=== PATIENT | male | born 1940 | race Caucasian/White ===

== ENCOUNTER → 2018-07-04 | Outpatient (CLI) | payer MEDICARE, OTHER ==
[2018-07-04 17:54] LABS: Microalb/Creat Ratio UR, Rand Unable to Calculate mg/g (0.000-30.000); Microalbumin, Random Urine <5.000 mg/L (0.000-20.000)
== END ==
LOC: LAB SHORT 11:09 → LAB 11:09
PROVIDERS: Registered Nurse
DX: E11.9 Type 2 diabetes mellitus without complications (principal); I10 Essential (primary) hypertension; E78.5 Hyperlipidemia, unspecified
CPT/HCPCS: 82043; 82570

== ENCOUNTER 2019-03-03 14:55 | Observation (INO) | payer MEDICARE, OTHER ==
[~2019-03-03] VITALS: Ht 167.6 cm; Wt 88.5 kg
[2019-03-03] MEDS ORDERED: LISI20 PO (15:17)
[2019-03-03 15:19] LABS: BASOPHILS ABSOLUTE AUTO 0.03 K/mm3 (0.00-0.23); BASOPHILS PERCENT AUTO 1 % (0-2); EOSINOPHILS ABSOLUTE AUTO 0.07 K/mm3 (0.00-0.68); EOSINOPHILS PERCENT AUTO 1 % (0-6); Hemoglobin 15.3 g/dL (13.5-17.5); IMMATURE GRAN ABSOLUTE AUTO 0.01 K/mm3 (0.00-0.10); IMMATURE GRAN PERCENT AUTO 0 % (0-1); LYMPHOCYTES ABSOLUTE AUTO 2.14 K/mm3 (0.84-5.20); LYMPHOCYTES PERCENT AUTO 43 % (21-46); MONOCYTES ABSOLUTE AUTO 0.36 K/mm3 (0.16-1.47); MONOCYTES PERCENT AUTO 7 % (4-13); Mean Corpuscular HGB 31.7 pg (26.0-34.0); Mean Corpuscular Volume 93 fL (80-100); Mean Platelet Volume 9.7 fL (9.1-12.4); NEUTROPHILS PERCENT AUTO 48 % (41-73); Platelet Count 152 K/mm3 (150-400); RDW Coefficient Variation 13.2 % (11.7-14.2); RDW Standard Deviation 45.1 fL (35.1-46.3); Red Blood Cell Count 4.83 M/mm3 (4.30-5.90); White Blood Cell Count 5.01 K/mm3 (4.00-11.30)
[2019-03-03] MEDS ORDERED: FINA5 PO (15:27)
[2019-03-03] MEDS ORDERED: SIMV40 PO (15:27)
[2019-03-03] MEDS ORDERED: TRELEGY ELLIPT1 EACH INH (15:27)
[2019-03-03] MEDS ORDERED: COMBIVENT RESPIM4 GM INH (15:28)
[2019-03-03] MEDS ORDERED: ALBU2.5V5 INH (15:28)
[2019-03-03] MEDS ORDERED: GLIM2 PO (15:29)
[2019-03-03] MEDS ORDERED: Aciphex20 MG PO (15:42)
[2019-03-03] MEDS ORDERED: VITAMIN E400 UNI1 PO (15:44)
[2019-03-03] MEDS ORDERED: ASCO500 PO (15:45)
[2019-03-03] MEDS ORDERED: Complete Multi1 EAC1 PO (15:45)
[2019-03-03] MEDS ORDERED: Cinnamon500 MG PO (15:46)
[2019-03-03] MEDS ORDERED: CHOL10002 PO (15:47)
[2019-03-03 15:48] LABS: Alanine Aminotransfer (ALT/SGP 33 U/L (12-78); Albumin, Blood 3.8 g/dL (3.4-5.0); Albumin/Globulin Ratio 1.2 (0.8-1.8); Alk Phos 91 U/L (50-136); Anion Gap 6 mmol/L (6-16); Aspartate Aminotrans (AST/SGOT 21 U/L (12-37); Bilirubin, Total 0.5 mg/dL (0.1-1.0); Blood Urea Nitrogen 17 mg/dL (8-24); Bun/Creatinine Ratio 12.8 (12.0-20.0); CO2, Blood 27 mmol/L (21-32); Calcium, Blood 8.9 mg/dL (8.5-10.1); Chloride, Blood 109 mmol/L (98-108); Creatinine, Blood 1.33 mg/dL (0.60-1.20); Globulin, Blood 3.3 g/dL (2.2-4.0); Glomerular Filtration Rate 55 (60-); Glucose, Blood 193 mg/dL (70-99); Potassium, Blood 4.1 mmol/L (3.5-5.5); Sodium, Blood 142 mmol/L (136-145); Total Protein, Blood 7.1 g/dL (6.4-8.2); Troponin I <0.015 ng/mL (0.000-0.040)
[2019-03-03] MEDS ORDERED: Super B-50 Com1 EACH PO (15:49)
[2019-03-03] MEDS ORDERED: IRON256 MG PO (15:52)
[2019-03-03] MEDS ORDERED: BUPR150ER PO (19:18)
--- NOTE | 2019-03-03 20:46 | NUR ---
PATIENT WAS A NEW ADMIT RIGHT BEFORE SHIFT CHANGE. AXO X3 AND ONE PERSON ASSIST TO BR. ORIENTED TO ROOM AND CALL LIGHT SYSTEM. DENIES CHEST PAIN, SOB, AND N/V. CALL LIGHT IN REACH.
--- NOTE | 2019-03-03 20:47 | NUR ---
RT IN TO SET UP CPAP WITH 2L O2 BLEED IN. PATIENT TOLERATING WELL. CALL LIGHT IN REACH.
--- NOTE | 2019-03-04 02:20 | NUR ---
PATIENT STATING 97% ON CPAP WITH 2L BLEED IN SLEEPING. DESTATED DOWN INTO THE HIGH 80'S X 2 AND BACK TO 97%. CALL LIGHT IN REACH.
--- NOTE | 2019-03-04 03:22 | NUR ---
SHIFT SUMMARY PATIENT HAD NO ACUTE CHANGES OBSERVED THIS SHIFT. DENIES CHEST PAIN, SOB, AND N/V. AXO X3 BEDFAST WITH BR PRIVILEDGES WITH SBA TO BSC. PIV REMAINS INTACT. CHILD CENTER ASSISTANT REPORTS NSR 85 W/1ST DEGREE. ON CPAP WITH 2L O2 BLEED IN AT NIGHT, RA DURING THE DAY. VSS/AFEBRILE. TAKES MEDICATION WHOLE WITH WATER. THREE TROPONINS LABS NEGATIVE. CONTINUOUS PULSE OXIMETRY STATING AVERAGE 97% ON 2L O2 NIGHT/CPAP. DESTATED SLEEPING X TWO TO HIGH 80'S AND BACK INTO THE HIGH 90'S. CALL LIGHT IN REACH. BED IN LOWEST POSITION. WILL CONTINUE TO MONITOR UNTIL DAY SHIFT NURSE ASSUMES CARE.
--- NOTE | 2019-03-04 16:22 | NUR ---
SHIFT SUMMARY PATIENT A&O X4, SBA TO BATHROOM. DENIES ANY PAIN OR NAUSEA. C/O SOB AT W/ EXERTION. CONT PULSE OX ON, SATS >90% THROUGHOUT THE SHIFT. BREATHING TREATMENTS PER RT. PATIENT HAD STRESS TEST DONE THIS AFTERNOON. BACK TO ROOM. DENIES CHEST PAIN. NO ACUTE CHANGES THIS SHIFT. BED IN LOWEST POSITION, CALL LIGHT WITHIN REACH.
--- NOTE | 2019-03-05 05:17 | NUR ---
SHIFT SUMMARY NO ACUTE CHANGES TO PRESENT THIS SHIFT. PT SITTING UP WATCHING TV DURING SHIFT REPORT. PLEASANT AND CO-OP. DENIED NEEDS. HX OF LUNG CA, CAD, HTN, AND COPD. PT ASSISTED WITH BIPAP AT HS BY RT. PT HAS REMAINED ON BIPAP THRU OUT THE NIGHT, RESTING QUIETLY. PT TO HAVE STRESS TEST TODAY AND POSSIBLE D/C IF NORMAL, PER SHIFT REPORT. PER TELE MX, PT SR WITH FIRST DEGREE AV BLOCK. SBA TO BTHRM. CONTINOUS BIOX WNL'S THRU OUT THE SHIFT. CALL LT IN REACH.
--- NOTE | 2019-03-05 17:33 | NUR ---
SHIFT SUMMARY PT HAS HAD NO ACUTE CHANGES THIS SHIFT, NO COMPLAINTS OF ANY KIND. PT IS BEDRSTING AT THIS TIME, WILL BE DC'ING THIS SHIFT, WILL CONT TO MONITOR.
[2019-03-05] MEDS ORDERED: CARV3.125 PO (18:01)
== END 2019-03-05 18:33 | disposition home or self-care (01) ==
LOC: ER 14:55 → MEDS 14:56
PROVIDERS: Emergency Medicine; ADMIT Hospitalist
DX: R07.9 Chest pain, unspecified (principal); I10 Essential (primary) hypertension; J44.9 Chronic obstructive pulmonary disease, unspecified; E11.9 Type 2 diabetes mellitus without complications; E78.5 Hyperlipidemia, unspecified; C34.2 Malignant neoplasm of middle lobe, bronchus or lung; E11.22 Type 2 diabetes mellitus with diabetic chronic kidney disease; I12.9 Hypertensive chronic kidney disease with stage 1 through stage 4 chronic kidney disease, or unspecified chronic kidney disease; N18.3 Chronic kidney disease, stage 3 (moderate); C34.90 Malignant neoplasm of unspecified part of unspecified bronchus or lung; Z87.891 Personal history of nicotine dependence; Z88.1 Allergy status to other antibiotic agents; Z88.5 Allergy status to narcotic agent; Z79.899 Other long term (current) drug therapy
CPT/HCPCS: 36415; 71045; 78452; 80053; 84484; 85025; 93005; 93010; 93017; 94640; 94660; 94762; 99285-25; A9500; J0706; J2785

== ENCOUNTER 2020-02-03 13:39 | Emergency (ER) | payer OTHER, MEDICARE ==
[~2020-02-03] VITALS: Ht 167.6 cm; Wt 88.0 kg
[~2020-02-03 13:39] MED LIST: ALBU2.5V5 INH; ASCO500 PO; Aciphex20 MG PO; BUPR150ER PO; CARV3.125 PO; COMBIVENT RESPIM4 GM INH; Cinnamon500 MG PO; Complete Multi1 EAC1 PO; FINA5 PO; GLIM2 PO; IRON256 MG PO; LISI20 PO; SIMV40 PO; Super B-50 Com1 EACH PO; TRELEGY ELLIPT1 EACH INH; VITAMIN D33000 UNI1 PO; VITAMIN E400 UNI1 PO
[2020-02-03] MEDS ORDERED: ZESTRIL40 M2 PO (14:06)
[2020-02-03] MEDS ORDERED: ATOR40TA PO (14:08)
[2020-02-03] MEDS ORDERED: METPRE4DP PO (14:56)
== END 2020-02-03 15:23 | disposition home or self-care (01) ==
LOC: ER 13:39
DX: M54.16 Radiculopathy, lumbar region (principal); Z88.5 Allergy status to narcotic agent; Z88.8 Allergy status to other drugs, medicaments and biological substances; Z79.899 Other long term (current) drug therapy; Z87.891 Personal history of nicotine dependence
CPT/HCPCS: 72100; 73502; 96372; 99283-25; J1885

== ENCOUNTER → 2020-02-17 | Outpatient (CLI) | payer MEDICARE, OTHER ==
[~2020-02-17] MED LIST changes: +ATOR40TA PO; +METPRE4DP PO; +ZESTRIL40 M2 PO
[2020-02-17 15:17] LABS: Percent Saturation 10.4 % (20.0-50.0)
== END | disposition home or self-care (01) ==
LOC: LAB SHORT 12:41 → LAB 12:41
PROVIDERS: Internal Medicine Hematology & Oncology
DX: C34.2 Malignant neoplasm of middle lobe, bronchus or lung (principal); K90.0 Celiac disease; D51.1 Vitamin B12 deficiency anemia due to selective vitamin B12 malabsorption with proteinuria; D64.9 Anemia, unspecified
CPT/HCPCS: 82607; 82728; 82746; 83540; 83550

== ENCOUNTER 2021-08-19 19:03 | Emergency (ER) | payer MEDICARE, OTHER ==
[~2021-08-19] VITALS: Ht 167.6 cm; Wt 70.3 kg
[2021-08-19 19:50] LABS: BASOPHILS ABSOLUTE AUTO 0.08 K/mm3 (0.00-0.23); BASOPHILS PERCENT AUTO 1 % (0-2); EOSINOPHILS ABSOLUTE AUTO 0.05 K/mm3 (0.00-0.68); EOSINOPHILS PERCENT AUTO 1 % (0-6); Hematocrit 44.2 % (37.0-53.0); Hemoglobin 15.1 g/dL (13.5-17.5); IMMATURE GRAN ABSOLUTE AUTO 0.05 K/mm3 (0.00-0.10); IMMATURE GRAN PERCENT AUTO 1 % (0-1); LYMPHOCYTES ABSOLUTE AUTO 1.58 K/mm3 (0.84-5.20); LYMPHOCYTES PERCENT AUTO 19 % (21-46); MONOCYTES ABSOLUTE AUTO 0.49 K/mm3 (0.16-1.47); MONOCYTES PERCENT AUTO 6 % (4-13); Mean Corpuscular HGB 30.9 pg (26.0-34.0); Mean Corpuscular HGB Conc 34.2 g/dL (31.5-36.5); Mean Corpuscular Volume 91 fL (80-100); Mean Platelet Volume 9.3 fL (9.1-12.4); NEUTROPHILS ABSOLUTE AUTO 5.89 K/mm3 (1.96-9.15); NEUTROPHILS PERCENT AUTO 72 % (41-73); Platelet Count 144 K/mm3 (150-400); RDW Coefficient Variation 13.4 % (11.7-14.2); RDW Standard Deviation 44.6 fL (35.1-46.3); Red Blood Cell Count 4.88 M/mm3 (4.30-5.90); White Blood Cell Count 8.14 K/mm3 (4.00-11.30)
[2021-08-19 20:03] LABS: Alanine Aminotransfer (ALT/SGP 31 U/L (12-78); Albumin, Blood 3.2 g/dL (3.4-5.0); Albumin/Globulin Ratio 0.8 (0.8-1.8); Alk Phos 100 U/L (50-136); Anion Gap 4 mmol/L (6-16); Aspartate Aminotrans (AST/SGOT 46 U/L (12-37); Bilirubin, Total 0.8 mg/dL (0.1-1.0); Blood Urea Nitrogen 16 mg/dL (8-24); Bun/Creatinine Ratio 13.1 (12.0-20.0); CO2, Blood 21 mmol/L (21-32); Calcium, Blood 9.2 mg/dL (8.5-10.1); Chloride, Blood 109 mmol/L (98-108); Creatinine, Blood 1.22 mg/dL (0.60-1.20); Glomerular Filtration Rate 57 (60-); Glucose, Blood 119 mg/dL (70-99); Potassium, Blood 4.3 mmol/L (3.5-5.5); Sodium, Blood 134 mmol/L (136-145); Total Protein, Blood 7.2 g/dL (6.4-8.2); Troponin I <0.015 ng/mL (0.000-0.040)
[2021-08-20] MEDS ORDERED: Norco 5-325 Ta1 EACH PO (02:59)
== END 2021-08-20 04:11 | disposition home or self-care (01) ==
LOC: ER 19:03
PROVIDERS: Physician Assistant
DX: S22.20XA Unspecified fracture of sternum, initial encounter for closed fracture (principal); I10 Essential (primary) hypertension; E11.9 Type 2 diabetes mellitus without complications; E78.5 Hyperlipidemia, unspecified; J44.9 Chronic obstructive pulmonary disease, unspecified; Z88.8 Allergy status to other drugs, medicaments and biological substances; Z88.5 Allergy status to narcotic agent; Z79.899 Other long term (current) drug therapy; Z79.84 Long term (current) use of oral hypoglycemic drugs; Z87.891 Personal history of nicotine dependence; W18.30XA Fall on same level, unspecified, initial encounter
CPT/HCPCS: 36415; 71046; 71260; 74177; 80053; 84484; 85025; 93005; 93010; 99285-25; Q9967

== ENCOUNTER 2022-01-08 10:47 | Inpatient (IN) | payer OTHER, MEDICARE ==
[~2022-01-08] VITALS: Ht 167.6 cm; Wt 76.2 kg
[~2022-01-08 10:47] MED LIST changes: +COMBIVENT RESPIM4 G1 INH; -COMBIVENT RESPIM4 GM INH; -Complete Multi1 EAC1 PO; +MULTI-VITAMIN1 EAC2 PO; +Norco 5-325 Ta1 EACH PO
[2022-01-08 11:04] LABS: Base Excess Venous -1.7 mmol/L; PCO2 Venous 40.4 mmHg (38-42); PO2 Venous 67.5 mmHg (38-42); pH Blood Venous 7.37 (7.34-7.37)
[2022-01-08 11:09] LABS: Hematocrit 40.5 % (37.0-53.0); Hemoglobin 13.3 g/dL (13.5-17.5); Mean Corpuscular HGB 28.9 pg (26.0-34.0); Mean Corpuscular HGB Conc 32.8 g/dL (31.5-36.5); Mean Corpuscular Volume 88 fL (80-100); Mean Platelet Volume 9.8 fL (9.1-12.4); Platelet Count 128 K/mm3 (150-400); RDW Coefficient Variation 15.5 % (11.7-14.2); RDW Standard Deviation 49.9 fL (35.1-46.3); White Blood Cell Count 5.81 K/mm3 (4.00-11.30)
[2022-01-08 11:19] LABS: Albumin, Blood 2.7 g/dL (3.4-5.0); Albumin/Globulin Ratio 0.6 (0.8-1.8); Bilirubin, Total 1.2 mg/dL (0.1-1.0); Bun/Creatinine Ratio 28.7 (12.0-20.0); Calcium, Blood 9.5 mg/dL (8.5-10.1); Creatinine, Blood 1.74 mg/dL (0.60-1.20); Globulin, Blood 4.7 g/dL (2.2-4.0); Magnesium, Blood 2.6 mg/dL (1.6-2.4); Potassium, Blood 4.4 mmol/L (3.5-5.5); Total Protein, Blood 7.4 g/dL (6.4-8.2)
[2022-01-08 11:34] LABS: BAND PERCENT MAN 11 % (0-8); BASOPHILS PERCENT MAN 0 % (0-2); EOSINOPHILS PERCENT MAN 0 % (0-6); LYMPHOCYTES ABSOLUTE MAN 0.63 K/mm3 (0.84-5.20); LYMPHOCYTES PERCENT MAN 11 % (21-46); MONOCYTES ABSOLUTE MAN 0.63 K/mm3 (0.16-1.47); MONOCYTES PERCENT MAN 11 % (4-13); NEUTROPHILS ABSOLUTE MAN 4.53 K/mm3 (1.96-9.15); SEG NEUTROPHILS PERCENT MAN 67 % (41-73); TOTAL CELLS COUNTED 100
[2022-01-08 11:48] LABS: Influenza A, PCR NEGATIVE (NEGATIVE); Influenza B, PCR NEGATIVE (NEGATIVE); Resp Syncytial Virus, PCR NEGATIVE (NEGATIVE); SARS-Cov-2 (COVID-19) PCR, MMC NEGATIVE (NEGATIVE)
[2022-01-08] MEDS ORDERED: DICLOFENAC SOD100 GM TOP (18:03)
[2022-01-08] MEDS ORDERED: FISH OIL 1,2001 EAC1 PO (18:05)
[2022-01-08] MEDS ORDERED: LISI20 PO (18:06)
[2022-01-08] MEDS ORDERED: OMEP20ER PO (18:07)
--- NOTE | 2022-01-08 18:50 | NUR ---
SHIFT SUMMARY PT ADMITTED FOR COPD EXACERBATION. HE IS A/O X3 BUT FORGETFUL. CURRENTLY ON 3 LITERS O2 AND SATTING ABOVE 90%. LUNGS COARSE T/O. MEDICATION LIST OBTAINED FROM V.A. AND RECONCILED. VSS. WILL REPORT TO NOC.
--- NOTE | 2022-01-09 01:24 | NUR ---
BURGLAR ALARM SUPERINTENDENT SUMMARY PATIENT HAD A FAIR SHIFT.HE IS ALERT AND ORIENTED, VERY PAM OF HEARING. HE IS ON 3L NC. HE STATES HE IS ALWAYS SOB. HIS V/S ARE STABLE AND THERE. NO COMPLAINT LODGED. WILL CONTINUE TO MONITOR HIM.
[2022-01-09 04:17] LABS: Hematocrit 37.1 % (37.0-53.0); Hemoglobin 12.3 g/dL (13.5-17.5); Mean Corpuscular HGB 28.9 pg (26.0-34.0); Mean Corpuscular HGB Conc 33.2 g/dL (31.5-36.5); Mean Corpuscular Volume 87 fL (80-100); Mean Platelet Volume 10.1 fL (9.1-12.4); Platelet Count 128 K/mm3 (150-400); RDW Coefficient Variation 14.9 % (11.7-14.2); RDW Standard Deviation 48.3 fL (35.1-46.3); Red Blood Cell Count 4.26 M/mm3 (4.30-5.90); White Blood Cell Count 4.52 K/mm3 (4.00-11.30)
[2022-01-09 04:32] LABS: Calcium, Blood 9.8 mg/dL (8.5-10.1); Creatinine, Blood 1.35 mg/dL (0.60-1.20); Potassium, Blood 3.8 mmol/L (3.5-5.5)
[2022-01-09 05:14] LABS: BAND PERCENT MAN 23 % (0-8); BASOPHILS PERCENT MAN 0 % (0-2); EOSINOPHILS PERCENT MAN 0 % (0-6); LYMPHOCYTES ABSOLUTE MAN 0.04 K/mm3 (0.84-5.20); LYMPHOCYTES PERCENT MAN 1 % (21-46); MONOCYTES ABSOLUTE MAN 0.22 K/mm3 (0.16-1.47); MONOCYTES PERCENT MAN 5 % (4-13); NEUTROPHILS ABSOLUTE MAN 4.24 K/mm3 (1.96-9.15); SEG NEUTROPHILS PERCENT MAN 71 % (41-73); TOTAL CELLS COUNTED 100
--- NOTE | 2022-01-09 17:18 | NUR ---
PATIENT IS ALERT AND ORIENTED AND COOPERATIVE WITH CARE. ON 2.5L O2 VIA NC. CONTINUOUS PULSE OX IN PLACE. PATIENT HAD A CHEST CT COMPLETED TODAY. USES THE URINAL. 1PA TO TRANSFER TO WHEELCHAIR. WILL CONTINUE TO MONITOR
--- NOTE | 2022-01-10 03:15 | NUR ---
SHIFT SUMMARY: A&OX4, COMPLIANT WITH MEDICATIONS AND PLAN OF CARE, REQUIRED 5L TO MAINTIAN SATS > 92%, USES CPAP HS BUT DOES NOT HAVE ONE HERE. COARSE LUNG SOUNDS WITH EXP WHEEZE. INTERMITTENT COUGH. NO SIGINIFICANT EVENTS ON NOC.
[2022-01-10 05:08] LABS: PO2 Arterial 77.6 mmHg (80-100); pH Blood Arterial 7.41 (7.35-7.45)
[2022-01-10 06:19] LABS: Hematocrit 35.7 % (37.0-53.0); Hemoglobin 11.7 g/dL (13.5-17.5); Mean Corpuscular HGB 28.7 pg (26.0-34.0); Mean Corpuscular HGB Conc 32.8 g/dL (31.5-36.5); Mean Corpuscular Volume 88 fL (80-100); Mean Platelet Volume 10.1 fL (9.1-12.4); Platelet Count 133 K/mm3 (150-400); RDW Standard Deviation 48.5 fL (35.1-46.3); Red Blood Cell Count 4.07 M/mm3 (4.30-5.90); White Blood Cell Count 4.31 K/mm3 (4.00-11.30)
[2022-01-10 06:36] LABS: Albumin, Blood 2.3 g/dL (3.4-5.0); Anion Gap 7 mmol/L (6-16); Blood Urea Nitrogen 49 mg/dL (8-24); Bun/Creatinine Ratio 39.2 (12.0-20.0); CO2, Blood 26 mmol/L (21-32); Chloride, Blood 110 mmol/L (98-108); Creatinine, Blood 1.25 mg/dL (0.60-1.20); Glomerular Filtration Rate 55 (60-); Glucose, Blood 187 mg/dL (70-99); Phosphorus, Blood 3.3 mg/dL (2.5-4.9); Potassium, Blood 3.9 mmol/L (3.5-5.5); Sodium, Blood 143 mmol/L (136-145)
--- NOTE | 2022-01-10 11:06 | NUR ---
HOME BIPAP SETTINGS SALOME AT [facility] WAS ABLE TO CONFIRM PTS HOME BIPAP SETTINGS. MOST RECENT ORDER PER [facility] WAS 01/07/22 AND WAS 13/9 WITH A 2L BLEED.
--- NOTE | 2022-01-10 18:27 | NUR ---
SHIFT SUMMARY PATIENT RESTING IN BED. NO SIGNIFICANT EVENTS T/O SHIFT. PATIENT ON 4L NC (1L BASELINE), PRODUCTIVE COUGH PRESENT. PATIENT USES BIPAP AT NIGHT. PATIENT UP TO CHAIR FOR LUNCH AND TOOK SHOWER TODAY. VSS. BED IN LOW POSITION WITH CALL LIGHT IN REACH. WILL CONTINUE TO MONITOR.
[2022-01-11 05:09] LABS: Hematocrit 34.1 % (37.0-53.0); Hemoglobin 11.1 g/dL (13.5-17.5); Mean Corpuscular HGB 28.7 pg (26.0-34.0); Mean Corpuscular HGB Conc 32.6 g/dL (31.5-36.5); Mean Corpuscular Volume 88 fL (80-100); Platelet Count 139 K/mm3 (150-400); RDW Standard Deviation 48.5 fL (35.1-46.3); Red Blood Cell Count 3.87 M/mm3 (4.30-5.90)
[2022-01-11 05:55] LABS: Albumin, Blood 2.2 g/dL (3.4-5.0); Anion Gap 5 mmol/L (6-16); Blood Urea Nitrogen 49 mg/dL (8-24); Bun/Creatinine Ratio 38.9 (12.0-20.0); CO2, Blood 28 mmol/L (21-32); Calcium, Blood 9.6 mg/dL (8.5-10.1); Chloride, Blood 109 mmol/L (98-108); Creatinine, Blood 1.26 mg/dL (0.60-1.20); Glomerular Filtration Rate 55 (60-); Glucose, Blood 181 mg/dL (70-99); Phosphorus, Blood 3.7 mg/dL (2.5-4.9); Sodium, Blood 142 mmol/L (136-145)
--- NOTE | 2022-01-11 15:20 | NUR ---
NO SIGNIFICANT CHANGES TO REPORT. PATIENT ALERT AND AWAKE, CONTINUES ON OXYGEN 4 L/MIN VIA NC, BASALINE AT HOME 1L/MIN, BIPAP AT NIGHT. PRODUCTIVE COUGH PRESENT. INSULIN ADMINISTRATED PER S/S. DEMIES PAIN THROUGHOUT THE SHIFT. WILL CONTINUE TO MONITOR.
--- NOTE | 2022-01-11 16:50 | NUR ---
Received referral from nurse toddler caregiver (Dane Urrutia) on 01/10/2022. Patient is to discharge 01/12/2022 with orders for home health and elected [facility]. Met with patient to further discuss the above. Patient is agreeable to the above. Discussed homebound status definition with patient. Patient verbalized understanding. Discussed what home health is vs what it is not (in home caregivers/housekeeping). Patient verbalized understanding. Discussed the next steps in the process of an initial assessment to determine frequency of visits. Again patient verbalized understanding. Offered a chance for patient to ask questions regarding the above of which there were none. At this time patient has no discharge orders entered. Will continue to monitor and follow for discharge. Melody Apple Referral Liaison
--- NOTE | 2022-01-12 05:08 | NUR ---
Patient slept throughout the night. He is still on 4 LO2 via N/A. Denies pain or disconfort at this time. No changes in patient status. We will continue to monitor.
[2022-01-12] MEDS ORDERED: ACET325 PO (10:28)
[2022-01-12] MEDS ORDERED: GUAI600T33 PO (10:28)
[2022-01-12] MEDS ORDERED: VISBIOME 112.51 EACH PO (10:29)
[2022-01-12] MEDS ORDERED: ALBU90OI INH (10:29)
[2022-01-12] MEDS ORDERED: AMOCLA875 PO (10:30)
[2022-01-12] MEDS ORDERED: PRED20 PO (10:31)
--- NOTE | 2022-01-12 15:55 | NUR ---
Patient now has discharge orders entered. Gathered all supporting documentation for referral (face sheet, face to face, med list, and H&P) and sent to [facility] for review. No further interventions required. Melody Apple Referral Liaison
== END 2022-01-12 13:04 | disposition home health service (06) | DRG 871 ==
LOC: ER 10:47 → MEDS 14:32
PROVIDERS: Family Medicine; Student in an Organized Health Care Education/Training Program; ADMIT Internal Medicine
DX: A41.3 Sepsis due to Hemophilus influenzae (principal); J96.21 Acute and chronic respiratory failure with hypoxia; J12.89 Other viral pneumonia; N17.9 Acute kidney failure, unspecified; C81.90 Hodgkin lymphoma, unspecified, unspecified site; Z20.822 Contact with and (suspected) exposure to COVID-19; E78.5 Hyperlipidemia, unspecified; J43.9 Emphysema, unspecified; E11.65 Type 2 diabetes mellitus with hyperglycemia; T38.0X5A Adverse effect of glucocorticoids and synthetic analogues, initial encounter; I12.9 Hypertensive chronic kidney disease with stage 1 through stage 4 chronic kidney disease, or unspecified chronic kidney disease; R65.20 Severe sepsis without septic shock; N18.31 Chronic kidney disease, stage 3a; E11.22 Type 2 diabetes mellitus with diabetic chronic kidney disease; K21.9 Gastro-esophageal reflux disease without esophagitis; N40.0 Benign prostatic hyperplasia without lower urinary tract symptoms; Z90.49 Acquired absence of other specified parts of digestive tract; Z98.890 Other specified postprocedural states; Z87.891 Personal history of nicotine dependence; Z88.1 Allergy status to other antibiotic agents; Z88.6 Allergy status to analgesic agent; Z79.899 Other long term (current) drug therapy
CPT/HCPCS: 0241U; 36415; 36600; 71045; 71250; 80048; 80053; 80069; 82803; 82947; 83605; 83735; 83880; 84145; 84484; 85025; 85027; 87040; 87070; 87077; 87185; 87205; 90686; 93005; 93010; 94640; 94644; 94660; 94667; 94668; 94760; 94761; 94762; 96374; 96375; 99285-25; A9270; J0696; J1644; J1940; J2930; J7030; J7512

== ENCOUNTER 2022-08-30 14:03 | Emergency (ER) | payer OTHER ==
[~2022-08-30] VITALS: Ht 167.6 cm; Wt 70.3 kg
[~2022-08-30 14:03] MED LIST changes: +ACET325 PO; +ALBU90OI INH; +AMOCLA875 PO; +DICLOFENAC SOD100 GM TOP; +FISH OIL 1,2001 EAC1 PO; +GUAI600T33 PO; +OMEP20ER PO; +PRED20 PO; +VISBIOME 112.51 EACH PO
== END 2022-08-30 16:55 | disposition home or self-care (01) ==
LOC: ER 14:03
DX: M25.551 Pain in right hip (principal); M79.645 Pain in left finger(s); W18.30XA Fall on same level, unspecified, initial encounter; J44.9 Chronic obstructive pulmonary disease, unspecified; I10 Essential (primary) hypertension; E11.9 Type 2 diabetes mellitus without complications; F17.200 Nicotine dependence, unspecified, uncomplicated; Z88.5 Allergy status to narcotic agent; Z88.1 Allergy status to other antibiotic agents; Z79.899 Other long term (current) drug therapy
CPT/HCPCS: 70450; 73140; 73502

== ENCOUNTER → 2022-12-25 | Emergency (ER) | payer OTHER, MEDICARE ==
[~2022-12-25] VITALS: Ht 167.6 cm; Wt 58.1 kg
[2022-12-25 18:19] LABS: BASOPHILS ABSOLUTE AUTO 0.08 K/mm3 (0.00-0.23); BASOPHILS PERCENT AUTO 1 % (0-2); EOSINOPHILS ABSOLUTE AUTO 0.03 K/mm3 (0.00-0.68); EOSINOPHILS PERCENT AUTO 0 % (0-6); Hemoglobin 10.5 g/dL (13.5-17.5); IMMATURE GRAN ABSOLUTE AUTO 0.02 K/mm3 (0.00-0.10); IMMATURE GRAN PERCENT AUTO 0 % (0-1); LYMPHOCYTES ABSOLUTE AUTO 1.36 K/mm3 (0.84-5.20); LYMPHOCYTES PERCENT AUTO 19 % (21-46); MONOCYTES PERCENT AUTO 7 % (4-13); Mean Corpuscular Volume 86 fL (80-100); Mean Platelet Volume 9.1 fL (9.1-12.4); NEUTROPHILS ABSOLUTE AUTO 5.08 K/mm3 (1.96-9.15); NEUTROPHILS PERCENT AUTO 72 % (41-73); Platelet Count 163 K/mm3 (150-400); RDW Coefficient Variation 14.9 % (11.7-14.2); RDW Standard Deviation 46.9 fL (35.1-46.3); White Blood Cell Count 7.07 K/mm3 (4.00-11.30)
[2022-12-25 18:37] LABS: International Normalized Ratio 1.08; Prothrombin Time Results 11.3 Sec (9.7-11.5)
[2022-12-25 18:39] LABS: Bun/Creatinine Ratio 9.9 (12.0-20.0); Calcium, Blood 8.5 mg/dL (8.5-10.1); Creatinine, Blood 1.01 mg/dL (0.60-1.20)
== END ==
LOC: ER 15:16
PROVIDERS: Student in an Organized Health Care Education/Training Program
DX: S02.0XXB Fracture of vault of skull, initial encounter for open fracture (principal); G93.89 Other specified disorders of brain; S72.144A Nondisplaced intertrochanteric fracture of right femur, initial encounter for closed fracture; S60.511A Abrasion of right hand, initial encounter; S50.811A Abrasion of right forearm, initial encounter; S80.211A Abrasion, right knee, initial encounter; V28.49XA Other motorcycle driver injured in noncollision transport accident in traffic accident, initial encounter; J44.9 Chronic obstructive pulmonary disease, unspecified; I10 Essential (primary) hypertension; E11.9 Type 2 diabetes mellitus without complications; F17.210 Nicotine dependence, cigarettes, uncomplicated; Z99.81 Dependence on supplemental oxygen; Z88.8 Allergy status to other drugs, medicaments and biological substances; Z88.5 Allergy status to narcotic agent; Z79.899 Other long term (current) drug therapy
CPT/HCPCS: 36415; 70450; 72125; 73502; 80048; 85025; 85610; 85730; 86850; 86900; 86901; 90714; J0690; J3010; J7030

== ENCOUNTER 2023-06-18 14:58 | Inpatient (IN) | payer MEDICARE, OTHER ==
[~2023-06-18] VITALS: Ht 167.6 cm; Wt 55.1 kg
[~2023-06-18 14:58] MED LIST changes: +Acetaminophen325 M1 PO; +Calcium Carbon500 MG; +LACT PO; +MIRT15ST PO; +TAMS.4ER PO; +VITAMIN D325 MC3 PO
[2023-06-18 15:40] LABS: BASOPHILS ABSOLUTE AUTO 0.07 K/mm3 (0.00-0.23); BASOPHILS PERCENT AUTO 1 % (0-2); EOSINOPHILS ABSOLUTE AUTO 0.05 K/mm3 (0.00-0.68); EOSINOPHILS PERCENT AUTO 1 % (0-6); Hematocrit 36.5 % (37.0-53.0); Hemoglobin 12.9 g/dL (13.5-17.5); IMMATURE GRAN ABSOLUTE AUTO 0.02 K/mm3 (0.00-0.10); IMMATURE GRAN PERCENT AUTO 0 % (0-1); LYMPHOCYTES ABSOLUTE AUTO 1.12 K/mm3 (0.84-5.20); LYMPHOCYTES PERCENT AUTO 16 % (21-46); MONOCYTES ABSOLUTE AUTO 0.71 K/mm3 (0.16-1.47); MONOCYTES PERCENT AUTO 10 % (4-13); Mean Corpuscular HGB 28.1 pg (26.0-34.0); Mean Corpuscular HGB Conc 35.3 g/dL (31.5-36.5); Mean Corpuscular Volume 80 fL (80-100); Mean Platelet Volume 8.5 fL (9.1-12.4); NEUTROPHILS ABSOLUTE AUTO 4.94 K/mm3 (1.96-9.15); NEUTROPHILS PERCENT AUTO 72 % (41-73); Platelet Count 221 K/mm3 (150-400); RDW Coefficient Variation 14.1 % (11.7-14.2); RDW Standard Deviation 40.3 fL (35.1-46.3); Red Blood Cell Count 4.59 M/mm3 (4.30-5.90); White Blood Cell Count 6.91 K/mm3 (4.00-11.30)
[2023-06-18 15:58] LABS: Albumin, Blood 3.2 g/dL (3.4-5.0); Albumin/Globulin Ratio 0.9 (0.8-1.8); Bilirubin, Total 0.6 mg/dL (0.1-1.0); Bun/Creatinine Ratio 13.8 (12.0-20.0); Calcium, Blood 8.7 mg/dL (8.5-10.1); Creatinine, Blood 0.94 mg/dL (0.60-1.20); Globulin, Blood 3.7 g/dL (2.2-4.0); Potassium, Blood 4.2 mmol/L (3.5-5.5); Total Protein, Blood 6.9 g/dL (6.4-8.2)
[2023-06-18 18:56] LABS: Source, Urine Clean Catch
[2023-06-18 19:04] LABS: International Normalized Ratio 1.05
[2023-06-18 19:12] LABS: Appearance, Urine Hazy (Clear); Bilirubin, Urine Neg (Neg); Blood, Urine Neg (Neg); Color, Urine Yellow (P-Yellow); Glucose Qualitative, Urine Neg (Neg); Ketones, Urine Neg (Neg); Leukocyte Esterase, Urine 3+ (Neg); Nitrite, Urine Neg (Neg); Protein, Urine 2+ (Neg); Urobilinogen, Urine NORM (Normal); pH, Urine 6.5 (5.0-8.0)
[2023-06-18 19:30] LABS: White Blood Cells, Urine 50-100 /hpf (0-5)
[2023-06-18 19:34] LABS: Bacteria Many /hpf; Squamous Epithelial Cells Few /hpf (Few)
[2023-06-18 22:05] VITALS: BP 113/68
--- NOTE | 2023-06-18 23:28 | NUR ---
PATIENT IS A NEW ADMIT FROM THE ED. ARRIVED VIA GURNEY AND THREE PERSON TRANSFER TO BED. AXOX 4 AND ON 2L O2 NC BASELINE WITH IV PROTONIX INFUSING FROM THE ED. DENIES CHEST PAIN, SOB, AND N/V. AGDAAGUX WITH BILATERAL HEARING AIDS IN. NPO AFTER MIDNIGHT FOR EGD WITH DR LORI BARTLETT 06/19/23 AFTERNOON. REPORTS HAD CAREGIVER THAT LIVES WITH HIM AND LEFT PRIOR TO ADMIT. PATIENT REPORTS HE LEFT FULL DENTURES AT HOME AND WOULD ALSO LIKE HOME CPAP BROUGHT IN BY CAREGIVER. ORIENTED TO ROOM AND CALL LIGHT SYSTEM. WANTS TO SLEEP AFTER ASSESSMENT. WCTM.
--- NOTE | 2023-06-18 23:34 | NUR ---
NORMAL SALINE STARTED AT 125 mL/HR. IV ABX INFUSED AND BACK TO IV PROTONIX @ 10 mL/HR. RT IN TO SETUP CPAP AND CONTINUOUS PULSE OXIMETRY PER ORDERS. CHANCE.
[2023-06-19] VITALS (13 sets, daily range): BP systolic 96–161; BP diastolic 55–88
[2023-06-19 04:38] LABS: Hematocrit 31.9 % (37.0-53.0); Hemoglobin 10.8 g/dL (13.5-17.5); Mean Corpuscular HGB 27.6 pg (26.0-34.0); Mean Corpuscular HGB Conc 33.9 g/dL (31.5-36.5); Mean Corpuscular Volume 82 fL (80-100); Mean Platelet Volume 8.6 fL (9.1-12.4); Platelet Count 178 K/mm3 (150-400); RDW Coefficient Variation 14.4 % (11.7-14.2); RDW Standard Deviation 41.8 fL (35.1-46.3); Red Blood Cell Count 3.91 M/mm3 (4.30-5.90); White Blood Cell Count 4.11 K/mm3 (4.00-11.30)
--- NOTE | 2023-06-19 04:44 | NUR ---
SHIFT SUMMARY PATIENT HAD NO ACUTE CHANGES. DENIES CHEST PAIN, SOB, AND N/V. AXO X 3 AND BEDREST. NPO FOR EGD THIS AFTERNOON WITH DR SANDOVAL. ON 2L O2 NC. USES CPAP SETUP BY RT. PIV REMAINS INTACT. NS INFUSING AT 125 mL/HR AND IV PROTONIX INFUSING AT 10 mL/HR. IV ABX INFUSED. CONDOM CATHETER IN PLACE PER PATIENT REQUEST. REPORTS LEFT FULL DENTURES AT HOME AND WILL HAVE CAREGIVER BRING THEM IN. SLEPT MOST OF THE NIGHT PULLING OFF CPAP AT TIMES. STATING >92% ON CONTINOUS PULSE OXIMETRY. CALL LIGHT IN REACH. BED IN LOWEST POSITION. WILL CONTINUE TO MONITOR UNTIL DAY SHIFT NURSE ASSUMES CARE.
[2023-06-19 04:58] LABS: Bun/Creatinine Ratio 17.2 (12.0-20.0); Creatinine, Blood 0.87 mg/dL (0.60-1.20); Potassium, Blood 3.9 mmol/L (3.5-5.5)
--- NOTE | 2023-06-19 05:51 | NUR ---
cL LAB: GLUCOSE 43. HOSPITALIST DR DUNCAN NOTIFIED AND ORDERED DETROSE 50% 1/2 SYRINGE AND CHANGE NS @ 125 TO D5 @ 75 mL/HR. RECHECK CBG IN 30-40 MINUTES. PATIENT IS NPO AT THIS TIME. WCTM.
--- NOTE | 2023-06-19 06:14 | NUR ---
RECHECK GLUCOSE: 123 WAS 43. PATIENT ALERT RESTING IN BED. WCTM.
--- NOTE | 2023-06-19 15:13 | NUR ---
History, Chart, Medications and Allergies reviewed before start of procedure. Patient confirms NPO status and agrees with scheduled surgery. Pre-Op teaching done. Pt verbalizes understanding. PT IS O2 DEPENDANT 2L.
--- NOTE | 2023-06-19 15:30 | NUR ---
06/19/23 [address] GUTIERREZ'S ANESTHESIA RECORD FOR SEDATION. PT GIVEN LIDOCAINE 4% SPRAY TO BACK OF THROAT PRIOR TO PROCEDURE PER DR. GUTIERREZ'S ORDER.
--- NOTE | 2023-06-19 17:31 | NUR ---
SHIFT SUMMARY: Pt remains A&O this shift. VSS. Resp even nonlabored on 2L NC and cpap with sleep. Pt back from EGD at 1620 verbally aroused, sleepy. Cpap placed. VSS. Awake and alert, changed to NC. Swallowing without difficulty. BM via bedpan with valdez stool. Denies pain. Will continue to monitor this shift.
[2023-06-20 03:31] VITALS: BP 136/64
[2023-06-20 04:43] LABS: BASOPHILS ABSOLUTE AUTO 0.03 K/mm3 (0.00-0.23); BASOPHILS PERCENT AUTO 1 % (0-2); EOSINOPHILS ABSOLUTE AUTO 0.08 K/mm3 (0.00-0.68); EOSINOPHILS PERCENT AUTO 2 % (0-6); Hematocrit 31.1 % (37.0-53.0); Hemoglobin 10.7 g/dL (13.5-17.5); IMMATURE GRAN ABSOLUTE AUTO 0.01 K/mm3 (0.00-0.10); IMMATURE GRAN PERCENT AUTO 0 % (0-1); LYMPHOCYTES ABSOLUTE AUTO 0.82 K/mm3 (0.84-5.20); LYMPHOCYTES PERCENT AUTO 20 % (21-46); MONOCYTES ABSOLUTE AUTO 0.45 K/mm3 (0.16-1.47); MONOCYTES PERCENT AUTO 11 % (4-13); Mean Corpuscular HGB 28.1 pg (26.0-34.0); Mean Corpuscular HGB Conc 34.4 g/dL (31.5-36.5); Mean Corpuscular Volume 82 fL (80-100); Mean Platelet Volume 8.7 fL (9.1-12.4); NEUTROPHILS ABSOLUTE AUTO 2.75 K/mm3 (1.96-9.15); NEUTROPHILS PERCENT AUTO 67 % (41-73); Platelet Count 164 K/mm3 (150-400); RDW Coefficient Variation 14.2 % (11.7-14.2); Red Blood Cell Count 3.81 M/mm3 (4.30-5.90); White Blood Cell Count 4.14 K/mm3 (4.00-11.30)
--- NOTE | 2023-06-20 05:06 | NUR ---
SHIFT SUMMERY, PT RESTING IN BED, PT HAD A SNACK BEFORE BEDTIME ANS WARM BLANKETS APPLYED, PT FELT COLD. PT APPEARS TO SLEEP COMFORTABLY. PT CALLED THIS AM STATED HE TRYED TO TURN AND HURT HIS RIGHT SHOULDER, PT STAED PAIN RIGHT LOWER SHOULDER BLADE. NO VISABLE SIGH OF INJURY . PLACED PILLOW BEHIND PT AND PILLOW UNDER PTS ARM . PT NOW TRYING TO GO BACK TO SLEEP.
[2023-06-20 05:16] LABS: Bun/Creatinine Ratio 13.3 (12.0-20.0); Calcium, Blood 8.2 mg/dL (8.5-10.1); Creatinine, Blood 0.98 mg/dL (0.60-1.20); Potassium, Blood 4.1 mmol/L (3.5-5.5)
[2023-06-20 08:05] VITALS: BP 122/65
[2023-06-20] MEDS ORDERED: LISI10 PO (12:43)
[2023-06-20] MEDS ORDERED: Prilosec Otc20 MG PO (12:45)
--- NOTE | 2023-06-20 16:14 | NUR ---
SHIFT/DISCHARGE INSTRUCTIONS: Pt remains A&O X3 this shift. Denies pain, VSS. Resp even nonlabored on 2L NC. Tolerating diet. Voiding per urinal/brief. All discharge instructions reviewed with return verbal understanding from pt. Pt declines to wait for friend Rafael to arrive to go over discharge instructions. Pt to lobby via transfer chair and unit portable oxygen. Rafael dominique has pt home portable oxygen in car.
== END 2023-06-20 16:21 | disposition home health service (06) | DRG 378 ==
LOC: ER 14:58 → MEDS 20:09 → ENPENDDIS 06-20 11:47 → MEDS 06-20 16:21
PROVIDERS: Emergency Medicine; Internal Medicine; Internal Medicine Gastroenterology; Nurse Practitioner Acute Care; Student in an Organized Health Care Education/Training Program; ADMIT Internal Medicine
PROC: 5A09357 Assistance with Respiratory Ventilation, Less than 24 Consecutive Hours, Continuous Positive Airway Pressure (ICD-10-PCS; 2023-06-18)
PROC: 0DB68ZX Excision of Stomach, Via Natural or Artificial Opening Endoscopic, Diagnostic (ICD-10-PCS; 2023-06-19)
PROC: 0DB98ZX Excision of Duodenum, Via Natural or Artificial Opening Endoscopic, Diagnostic (ICD-10-PCS; principal; 2023-06-19 15:00)
DX: K92.0 Hematemesis (principal); E87.1 Hypo-osmolality and hyponatremia; N39.0 Urinary tract infection, site not specified; J96.11 Chronic respiratory failure with hypoxia; K22.10 Ulcer of esophagus without bleeding; K31.89 Other diseases of stomach and duodenum; K44.9 Diaphragmatic hernia without obstruction or gangrene; J44.9 Chronic obstructive pulmonary disease, unspecified; G47.33 Obstructive sleep apnea (adult) (pediatric); E78.5 Hyperlipidemia, unspecified; F17.210 Nicotine dependence, cigarettes, uncomplicated; I95.9 Hypotension, unspecified; R00.0 Tachycardia, unspecified; N40.0 Benign prostatic hyperplasia without lower urinary tract symptoms; K90.0 Celiac disease; N18.1 Chronic kidney disease, stage 1; E11.22 Type 2 diabetes mellitus with diabetic chronic kidney disease; I12.9 Hypertensive chronic kidney disease with stage 1 through stage 4 chronic kidney disease, or unspecified chronic kidney disease; H26.9 Unspecified cataract; E11.42 Type 2 diabetes mellitus with diabetic polyneuropathy; H81.09 Meniere's disease, unspecified ear; M54.50 Low back pain, unspecified; M54.16 Radiculopathy, lumbar region; D63.1 Anemia in chronic kidney disease; B95.4 Other streptococcus as the cause of diseases classified elsewhere; R63.4 Abnormal weight loss; Z85.118 Personal history of other malignant neoplasm of bronchus and lung; Z79.899 Other long term (current) drug therapy; Z98.890 Other specified postprocedural states; Z79.51 Long term (current) use of inhaled steroids; Z88.1 Allergy status to other antibiotic agents; Z90.49 Acquired absence of other specified parts of digestive tract; Z88.5 Allergy status to narcotic agent; Z87.19 Personal history of other diseases of the digestive system; Z99.89 Dependence on other enabling machines and devices; Z92.3 Personal history of irradiation; Z85.72 Personal history of non-Hodgkin lymphomas; Z68.21 Body mass index [BMI] 21.0-21.9, adult
CPT/HCPCS: 36415; 74177; 80048; 80053; 81001; 82947; 83690; 85025; 85027; 85610; 85730; 87086; 88305; 88342; 93005; 93010; 94640; 94660; 94664; 94762; 96365-59; 96366; 96376; 97161; 97165; 97530; 99285-25; A9270; C9113; J0696; J2001; J2704; J7030; J7070; J7120; Q9967

== ENCOUNTER 2023-08-22 11:30 | Emergency (ER) | payer MEDICARE, OTHER ==
[~2023-08-22] VITALS: Ht 167.6 cm; Wt 59.0 kg
[~2023-08-22 11:30] MED LIST changes: +LISI10 PO; +Prilosec Otc20 MG PO
[2023-08-22 11:39] VITALS: BP 130/81
== END 2023-08-22 13:32 | disposition home or self-care (01) ==
LOC: ER 11:30
DX: M25.512 Pain in left shoulder (principal); J44.9 Chronic obstructive pulmonary disease, unspecified; I10 Essential (primary) hypertension; E11.9 Type 2 diabetes mellitus without complications; E78.5 Hyperlipidemia, unspecified; F17.200 Nicotine dependence, unspecified, uncomplicated; Z88.1 Allergy status to other antibiotic agents; Z88.5 Allergy status to narcotic agent; Z79.899 Other long term (current) drug therapy; Z99.81 Dependence on supplemental oxygen; Z91.81 History of falling
CPT/HCPCS: 73030; 99283-25

== ENCOUNTER 2023-09-05 19:56 | Emergency (ER) | payer MEDICARE, OTHER ==
[~2023-09-05] VITALS: Ht 167.6 cm; Wt 59.0 kg
[2023-09-05 20:37] LABS: BASOPHILS ABSOLUTE AUTO 0.06 K/mm3 (0.00-0.23); BASOPHILS PERCENT AUTO 1 % (0-2); EOSINOPHILS ABSOLUTE AUTO 0.05 K/mm3 (0.00-0.68); EOSINOPHILS PERCENT AUTO 1 % (0-6); Hematocrit 32.3 % (37.0-53.0); Hemoglobin 10.6 g/dL (13.5-17.5); IMMATURE GRAN ABSOLUTE AUTO 0.03 K/mm3 (0.00-0.10); IMMATURE GRAN PERCENT AUTO 0 % (0-1); LYMPHOCYTES ABSOLUTE AUTO 1.39 K/mm3 (0.84-5.20); LYMPHOCYTES PERCENT AUTO 16 % (21-46); MONOCYTES ABSOLUTE AUTO 0.98 K/mm3 (0.16-1.47); MONOCYTES PERCENT AUTO 12 % (4-13); Mean Corpuscular HGB 27.4 pg (26.0-34.0); Mean Corpuscular HGB Conc 32.8 g/dL (31.5-36.5); Mean Corpuscular Volume 84 fL (80-100); Mean Platelet Volume 9.7 fL (9.1-12.4); NEUTROPHILS ABSOLUTE AUTO 6.01 K/mm3 (1.96-9.15); NEUTROPHILS PERCENT AUTO 71 % (41-73); Platelet Count 192 K/mm3 (150-400); RDW Coefficient Variation 15.9 % (11.7-14.2); RDW Standard Deviation 47.7 fL (35.1-46.3); Red Blood Cell Count 3.87 M/mm3 (4.30-5.90); White Blood Cell Count 8.52 K/mm3 (4.00-11.30)
[2023-09-05 20:59] LABS: Albumin/Globulin Ratio 0.7 (0.8-1.8); Bilirubin, Total 0.4 mg/dL (0.1-1.0); Calcium, Blood 9.1 mg/dL (8.5-10.1); Creatinine, Blood 1.22 mg/dL (0.60-1.20); Globulin, Blood 4.3 g/dL (2.2-4.0); Potassium, Blood 4.5 mmol/L (3.5-5.5); Total Protein, Blood 7.3 g/dL (6.4-8.2)
[2023-09-05 22:51] LABS: Influenza A, PCR NEGATIVE (NEGATIVE); Influenza B, PCR NEGATIVE (NEGATIVE); Resp Syncytial Virus, PCR NEGATIVE (NEGATIVE); SARS-Cov-2 (COVID-19) PCR, MMC NEGATIVE (NEGATIVE)
[2023-09-06 00:57] LABS: Source, Urine Clean Catch
[2023-09-06 01:53] LABS: Bilirubin, Urine Neg (Neg); Blood, Urine Neg (Neg); Glucose Qualitative, Urine Neg (Neg); Ketones, Urine Neg (Neg); Leukocyte Esterase, Urine Neg (Neg); Nitrite, Urine Neg (Neg); Protein, Urine 2+ (Neg); Urobilinogen, Urine NORM (Normal)
[2023-09-06 01:54] LABS: Appearance, Urine Clear (Clear); Color, Urine Yellow (P-Yellow)
[2023-09-06 01:55] LABS: Bacteria Rare /hpf; Hyaline Casts 0-2 /lpf (0-2); Red Blood Cells, Urine 0-2 /hpf (0-2); Squamous Epithelial Cells Rare /hpf (Few); White Blood Cells, Urine 0-2 /hpf (0-5)
[2023-09-06 02:32] VITALS: BP 119/86
[2023-09-07] MEDS ORDERED: IBUP200 PO (21:14)
== END 2023-09-06 02:59 | disposition home or self-care (01) ==
LOC: ER 19:56
PROVIDERS: Emergency Medicine; Student in an Organized Health Care Education/Training Program
DX: E86.0 Dehydration (principal); Z20.822 Contact with and (suspected) exposure to COVID-19; I10 Essential (primary) hypertension; E11.9 Type 2 diabetes mellitus without complications; E78.5 Hyperlipidemia, unspecified; J44.9 Chronic obstructive pulmonary disease, unspecified; Z99.81 Dependence on supplemental oxygen; F17.200 Nicotine dependence, unspecified, uncomplicated
CPT/HCPCS: 0241U; 51798; 71046; 80053; 81001; 85025; 93005; 93010; 96360; 99285-25; J7030

== ENCOUNTER 2023-09-07 20:57 | Emergency (ER) | payer MEDICARE, OTHER ==
[~2023-09-07] VITALS: Ht 167.6 cm; Wt 59.0 kg
[2023-09-07] MEDS ORDERED: IBUP200 PO (21:14)
[2023-09-07 23:30] VITALS: BP 113/75
== END 2023-09-07 23:56 | disposition home or self-care (01) ==
LOC: ER 20:57
DX: R51.9 Headache, unspecified (principal); Z88.1 Allergy status to other antibiotic agents; Z88.5 Allergy status to narcotic agent; Z79.899 Other long term (current) drug therapy; J44.9 Chronic obstructive pulmonary disease, unspecified; F17.200 Nicotine dependence, unspecified, uncomplicated
CPT/HCPCS: 70450; 96372; 99283-25; J1885